=== PATIENT | male | born 1995 | race Caucasian/White ===

== ENCOUNTER 2021-12-26 01:58 | Outpatient (CLI) | payer OTHER, SELFPAY ==
[2021-12-26 08:17] LABS: HCT 40.4 % (40.0-50.0); HGB 13.5 g/dL (13.5-17.5); MCH 29.6 pg (27.0-33.0); MCHC 33.4 % (32.0-36.0); MCV 89 fL (80-95); MPV 9.3 fL (8.0-11.0); Platelet Count 166 10^3/uL (130-400); RBC 4.56 10^6/uL (4.36-5.78); RDW-SD 39.3 fL; WBC 4.46 10^3/uL (4.4-10.8)
[2021-12-26 08:55] LABS: ALT 66 U/L (16-63); AST 77 U/L (15-37); Albumin 4.1 g/dL (3.4-5.0); Alkaline Phosphatase 47 U/L (46-116); Anion Gap 6.3 mmol/L (3-11); BUN 16 mg/dL (7-18); Bilirubin, Total 0.8 mg/dL (0.2-1.0); CO2 29.7 mmol/L (21.0-32.0); CREATININE 0.9 mg/dL (0.70-1.30); Calcium 9.3 mg/dL (8.5-10.1); Calculated LDL 67 mg/dL (<100); Chloride 104 mmol/L (98-107); Cholesterol 159 mg/dL (<200); Estimated GFR 119.31 (mL/min/1.73m2); Glucose 99 mg/dL (74-106); HDL Cholesterol 85 mg/dL (40-60); Potassium 3.7 mmol/L (3.5-5.1); Sodium 140 mmol/L (136-145); Triglyceride 36 mg/dL (<150)
== END 2021-12-26 01:59 | disposition home or self-care (01) ==
LOC: LBO 01:59
PROVIDERS: Visit Provider Physician Assistant
DX: Z00.00 Encounter for general adult medical examination without abnormal findings (principal)
CPT/HCPCS: 36415; 80053; 80061; 85027

== ENCOUNTER 2022-04-12 04:07 | Outpatient (CLI) | payer OTHER, SELFPAY ==
[2022-04-12 15:11] LABS: Absolute Basophil Count 0.02 10^3/uL (0.0-0.2); Absolute Eosinophil Count 0.04 10^3/uL (0.0-0.7); Absolute Lymphocyte Count 1.57 10^3/uL (1.2-3.4); Absolute Monocyte Count 0.43 10^3/uL (0.1-0.8); Absolute Neutrophil Count 2.63 10^3/uL (1.2-6.7); Basophils % 0.4; Eosinophils % 0.9; HCT 43.4 % (40.0-50.0); HGB 14.4 g/dL (13.5-17.5); Lymphocytes % 33.5; MCH 29.9 pg (27.0-33.0); MCHC 33.2 % (32.0-36.0); MCV 90 fL (80-95); MPV 8.9 fL (8.0-11.0); Monocytes % 9.2; Platelet Count 205 10^3/uL (130-400); RBC 4.82 10^6/uL (4.36-5.78); RDW-SD 39.5 fL; WBC 4.69 10^3/uL (4.4-10.8)
[2022-04-12 15:55] LABS: ALT 38 U/L (16-63); AST 33 U/L (15-37); Albumin 4.4 g/dL (3.4-5.0); Alkaline Phosphatase 59 U/L (46-116); Anion Gap 6.6 mmol/L (3-11); BUN 25 mg/dL (7-18); Bilirubin, Direct 0.2 mg/dL (0.0-0.2); Bilirubin, Total 0.7 mg/dL (0.2-1.0); CO2 29.4 mmol/L (21.0-32.0); CREATININE 1.1 mg/dL (0.70-1.30); Calcium 9.4 mg/dL (8.5-10.1); Chloride 104 mmol/L (98-107); Estimated GFR 93.77 (mL/min/1.73m2); GGT 16 U/L (15-85); Glucose 91 mg/dL (74-106); Potassium 3.8 mmol/L (3.5-5.1); Sodium 140 mmol/L (136-145); Total Protein 7.4 g/dL (6.4-8.2)
[2022-04-13 10:16] LABS: Hepatitis C Ab w Rflx HCV PCR Negative (Negative)
[2022-04-13 10:20] LABS: HBs Antibody, Quant <3.1 mIU/mL (See Note); Hep B Surface Ab Negative (See Note); Hepatitis B Core Antibody Negative (Negative); Hepatitis B Surface Antigen Negative (Negative)
[2022-04-13 10:24] LABS: HIV-1/2 Ag & Ab Screen Negative (Negative)
[2022-04-13 10:56] LABS: Hep A Total Ab w Rflx IgM Positive (Negative)
[2022-04-13 16:28] LABS: Hep A Antibody IgM Negative (Negative)
== END 2022-04-12 04:08 | disposition home or self-care (01) ==
LOC: LBO 04:07
PROVIDERS: Visit Provider Physician Assistant
DX: R74.01 Elevation of levels of liver transaminase levels (principal); R94.5 Abnormal results of liver function studies; Z00.00 Encounter for general adult medical examination without abnormal findings; Z11.4 Encounter for screening for human immunodeficiency virus [HIV]; Z11.59 Encounter for screening for other viral diseases; D68.69 Other thrombophilia
CPT/HCPCS: 36415; 80048; 80076; 86704; 86706; 86709; 86803; 87340; 87389; 82977; 85025

== ENCOUNTER 2024-02-24 12:57 | Outpatient (CLI) | payer OTHER, SELFPAY ==
[2024-02-24 07:51] LABS: HCT 40.5 % (40.0-50.0); HGB 13.8 g/dL (13.5-17.5); MCH 30.4 pg (27.0-33.0); MCHC 34.1 % (32.0-36.0); MCV 89 fL (80-95); MPV 9.2 fL (8.0-11.0); Platelet Count 189 10^3/uL (130-400); RBC 4.54 10^6/uL (4.36-5.78); RDW 12.1 % (11.8-14.1); RDW-SD 39.7 fL; WBC 3.58 10^3/uL (4.4-10.8)
[2024-02-24 08:04] LABS: Hemoglobin A1C 5.4 % (<5.7)
[2024-02-24 08:07] LABS: Anion Gap 5.6 mmol/L (3-11); BUN 15 mg/dL (7-18); CO2 30.4 mmol/L (21.0-32.0); Calcium 9.4 mg/dL (8.5-10.1); Calculated LDL 77 mg/dL (<100); Chloride 105 mmol/L (98-107); Cholesterol 172 mg/dL (<200); Estimated GFR 103.84 (mL/min/1.73m2); Glucose 90 mg/dL (74-106); HDL Cholesterol 90 mg/dL (40-60); Potassium 4.2 mmol/L (3.5-5.1); Sodium 141 mmol/L (136-145); Triglyceride 28 mg/dL (<150)
[2024-02-28 13:00] LABS: Testosterone, Free 16.4 ng/dL (4.85-19.0); Testosterone, Total 744 ng/dL (240-950)
== END 2024-02-24 12:58 | disposition home or self-care (01) ==
LOC: LBO 12:59
PROVIDERS: Visit Provider Registered Nurse
DX: R73.9 Hyperglycemia, unspecified (principal); Z13.6 Encounter for screening for cardiovascular disorders; Z13.220 Encounter for screening for lipoid disorders; E34.9 Endocrine disorder, unspecified
CPT/HCPCS: 36415; 80048; 80061; 84402; 84403; 85027; 83036